=== PATIENT | male | born 1995 | race Caucasian/White ===

== ENCOUNTER 2021-10-11 11:22 | Emergency (ER) | payer MEDICAID ==
[~2021-10-11] VITALS: Ht 170.2 cm; Wt 77.8 kg
[2021-10-11 11:36] VITALS: BP 141/88
[2021-10-11] MEDS ORDERED: PROM118S5 PO (12:21)
[2021-10-11] MEDS ORDERED: IBUP-2213 PO (12:21)
[2021-10-11] MEDS ORDERED: IMO2 PO (12:21)
[2021-10-11] MEDS ORDERED: ONDA-188 PO (12:21)
[2021-10-11 13:04] VITALS: BP 137/72
== END 2021-10-11 12:30 | disposition home or self-care (01) ==
LOC: MED 11:22
DX: U07.1 COVID-19 (principal)
CPT/HCPCS: 99283